=== PATIENT | female | born 1950 | race African-American/Black ===

== ENCOUNTER 2024-04-06 20:12 | Emergency (ER) | payer BC, MEDICAID ==
[~2024-04-06] VITALS: Ht 175.3 cm; Wt 65.0 kg
[2024-04-06 20:17] VITALS: O2SAT 98
[2024-04-06 20:56] VITALS: BP 149/91; PULSE 83; RESP 16; TEMP 98.3; O2SAT 98
== END 2024-04-06 23:28 | disposition left against medical advice (07) ==
LOC: ER 20:12
DX: J45.909 Unspecified asthma, uncomplicated (principal); Z53.21 Procedure and treatment not carried out due to patient leaving prior to being seen by health care provider
CPT/HCPCS: 93005